=== PATIENT | female | born 1955 | race Two or more races ===

== ENCOUNTER 2017-06-09 04:12 | Inpatient (IN) | payer OTHER ==
[~2017-06-09] VITALS: Ht 157.5 cm; Wt 57.4 kg
[2017-06-09 06:38] LABS: BASOPHIL % 0.2 % (0-2); PLATELET COUNT 210 x10^3mcL (130-400); RED CELL DISTRIBUTION WIDTH 13.9 % (11.5-14.5)
[2017-06-09 06:51] LABS: CARBON DIOXIDE 21.3 mmol/L (21-32); CREATININE SERUM 1.4 mg/dL (0.6-1.0); POTASSIUM SERUM 3.3 mmol/L (3.5-5.1)
[2017-06-09 06:56] LABS: ALBUMIN 4.1 g/dL (3.4-5.0); BILIRUBIN TOTAL 0.33 mg/dL (0.20-1.00)
[2017-06-09 06:59] LABS: TOTAL PROTEIN, SERUM 8.9 g/dL (6.4-8.2)
[2017-06-09 07:05] LABS: CK-MB < 0.5 ng/mL (0-3.6); CREATINE KINASE 75 U/L (26-192)
[2017-06-09 07:41] LABS: UA SPECIFIC GRAVITY 1.015 (1.005-1.035); microscopic required? YES; urine erythrocyte 1+ (NEGATIVE)
[2017-06-09 10:50] LABS: T3 TOTAL 0.93 ng/mL
[2017-06-09 10:54] VITALS: BP 159/76
[2017-06-09 10:55] LABS: MAGNESIUM 1.6 mg/dL (1.8-2.4); PHOSPHOROUS 2.9 mg/dL (2.5-4.9)
[2017-06-09 10:57] LABS: CHOLESTEROL/HDL RATIO 2.4
[2017-06-09 11:13] LABS: FREE T4 1.29 ng/dL (0.76-1.46); FREE THYROXINE INDEX 3.9 ug/dL (1.4-4.5); T4(THYROXINE) 10.9 ug/dL (4.7-13.3)
[2017-06-09 17:09] VITALS: BP 137/68
[2017-06-09 20:59] VITALS: BP 139/84
[2017-06-10 05:20] VITALS: BP 114/70
[2017-06-10 09:28] VITALS: BP 133/76
[2017-06-10 11:46] VITALS: Ht 157.5 cm; Wt 57.4 kg
[2017-06-10 14:50] VITALS: BP 133/76
[2017-06-10] MEDS ORDERED: COLACE100 MG PO (14:54)
== END 2017-06-10 16:00 | disposition home or self-care (01) | DRG 204 ==
LOC: ED 04:12 → DU 09:36
PROVIDERS: Emergency Medicine; Family Medicine; ADMIT Internal Medicine Pulmonary Disease
DX: R55 Syncope and collapse (principal); K50.90 Crohn's disease, unspecified, without complications; I10 Essential (primary) hypertension; R31.9 Hematuria, unspecified; M54.9 Dorsalgia, unspecified; G89.4 Chronic pain syndrome
CPT/HCPCS: 83880; 84439; J1200; J2270; J2405; J2543; J7030; Q0092

== ENCOUNTER 2017-07-11 20:37 | Emergency (ER) | payer OTHER ==
[~2017-07-11 20:37] MED LIST: COLACE100 MG PO
[2017-07-11 20:46] VITALS: BP 160/84
[2017-07-12] MEDS ORDERED: NOR10 PO (15:13)
[2017-07-12] MEDS ORDERED: BUPROPION HCL100 M1 PO (15:14)
[2017-07-12] MEDS ORDERED: FUROSEMIDE20 MG PO (15:14)
[2017-07-12] MEDS ORDERED: SULFAZINE500 M1 PO (15:14)
[2017-07-12] MEDS ORDERED: VITD PO (15:14)
== END 2017-07-11 22:46 | disposition left against medical advice (07) ==
LOC: ED 20:37
DX: Z53.21 Procedure and treatment not carried out due to patient leaving prior to being seen by health care provider (principal)

== ENCOUNTER 2017-07-12 11:39 | Inpatient (IN) | payer OTHER ==
[~2017-07-12] VITALS: Ht 160 cm; Wt 55.6 kg
[2017-07-12 12:39] LABS: BASOPHIL % 0.9 % (0-2); PLATELET COUNT 343 x10^3mcL (130-400); RED CELL DISTRIBUTION WIDTH 13.5 % (11.5-14.5)
[2017-07-12 12:52] LABS: CALCIUM 9.3 mg/dL (8.5-10.1); CARBON DIOXIDE 24.2 mmol/L (21-32); CREATININE SERUM 1.4 mg/dL (0.6-1.0); POTASSIUM SERUM 3.1 mmol/L (3.5-5.1)
[2017-07-12 12:57] LABS: ALBUMIN 3.4 g/dL (3.4-5.0); BILIRUBIN TOTAL 0.34 mg/dL (0.20-1.00); TOTAL PROTEIN, SERUM 8.5 g/dL (6.4-8.2)
[2017-07-12 14:04] LABS: microscopic required? YES; urine erythrocyte 3+ (NEGATIVE)
[2017-07-12] MEDS ORDERED: NOR10 PO (15:13)
[2017-07-12] MEDS ORDERED: SULFAZINE500 M1 PO (15:14)
[2017-07-12] MEDS ORDERED: BUPROPION HCL100 M1 PO (15:14)
[2017-07-12] MEDS ORDERED: FUROSEMIDE20 MG PO (15:14)
[2017-07-12] MEDS ORDERED: VITD PO (15:14)
[2017-07-12 15:46] LABS: T3 TOTAL 0.95 ng/mL
[2017-07-12 15:55] LABS: MAGNESIUM 1.5 mg/dL (1.8-2.4); PHOSPHOROUS 2.7 mg/dL (2.5-4.9)
[2017-07-12 16:01] LABS: CHOLESTEROL/HDL RATIO 2.3
[2017-07-12 16:08] VITALS: BP 114/76; BP 144/76
[2017-07-12 16:25] LABS: FREE T4 1.21 ng/dL (0.76-1.46); FREE THYROXINE INDEX 3.7 ug/dL (1.4-4.5); T4(THYROXINE) 10.3 ug/dL (4.7-13.3)
[2017-07-12 21:00] VITALS: BP 136/73
[2017-07-13 04:09] LABS: IRON 22 ug/dL (50-170); TOTAL IRON BINDING CAPACITY 270 ug/dL (250-450)
[2017-07-13 05:53] VITALS: BP 137/78
[2017-07-13 06:48] LABS: BASOPHIL % 0.2 % (0-2); PLATELET COUNT 306 x10^3mcL (130-400); RED CELL DISTRIBUTION WIDTH 13.9 % (11.5-14.5)
[2017-07-13 06:51] LABS: CALCIUM 9.5 mg/dL (8.5-10.1); CARBON DIOXIDE 26.5 mmol/L (21-32); CREATININE SERUM 1.1 mg/dL (0.6-1.0); MAGNESIUM 2.4 mg/dL (1.8-2.4); PHOSPHOROUS 2.7 mg/dL (2.5-4.9)
[2017-07-13 08:25] LABS: RED BLOOD CELLS 3.8 M/mm3 (4.10-5.10)
[2017-07-13 09:28] VITALS: BP 112/60
[2017-07-13 13:47] VITALS: BP 127/78
[2017-07-13 17:46] VITALS: BP 109/68
[2017-07-13 20:56] VITALS: BP 116/62
[2017-07-14 05:52] VITALS: BP 114/69
[2017-07-14 06:11] LABS: BASOPHIL % 0.4 % (0-2); PLATELET COUNT 289 x10^3mcL (130-400); RED CELL DISTRIBUTION WIDTH 13.4 % (11.5-14.5)
[2017-07-14 06:41] LABS: CALCIUM 8.3 mg/dL (8.5-10.1); CARBON DIOXIDE 29.2 mmol/L (21-32); POTASSIUM SERUM 3.5 mmol/L (3.5-5.1)
[2017-07-14 09:30] VITALS: BP 123/75
[2017-07-14 17:06] VITALS: BP 139/77
[2017-07-14 21:05] VITALS: BP 111/62
[2017-07-15] MEDS ORDERED: FLO4 PO (05:26)
[2017-07-15] MEDS ORDERED: FERROUS SULFAT325 M2 PO (05:31)
[2017-07-15 05:44] VITALS: BP 118/70
[2017-07-15 05:58] LABS: CALCIUM 8.6 mg/dL (8.5-10.1); CARBON DIOXIDE 30.7 mmol/L (21-32); CREATININE SERUM 1.1 mg/dL (0.6-1.0); POTASSIUM SERUM 3.8 mmol/L (3.5-5.1)
[2017-07-15] MEDS ORDERED: LAC PO (09:48)
[2017-07-15] MEDS ORDERED: LEVOFLOXACIN500 M1 PO (09:48)
[2017-07-15 09:50] VITALS: BP 153/81
[2017-07-15 09:53] VITALS: BP 118/70
== END 2017-07-15 11:25 | disposition home or self-care (01) | DRG 465 ==
LOC: ED 11:39 → DU 14:41 → MU 07-14 06:48
PROVIDERS: Emergency Medicine; ADMIT Family Medicine
DX: N20.0 Calculus of kidney (principal); N17.0 Acute kidney failure with tubular necrosis; K50.90 Crohn's disease, unspecified, without complications; N39.0 Urinary tract infection, site not specified; E87.6 Hypokalemia; E83.42 Hypomagnesemia; F32.9 Major depressive disorder, single episode, unspecified; D64.9 Anemia, unspecified; Z68.21 Body mass index [BMI] 21.0-21.9, adult; Z88.5 Allergy status to narcotic agent; Z88.8 Allergy status to other drugs, medicaments and biological substances; I10 Essential (primary) hypertension
CPT/HCPCS: 83880; 84439; J0696; J1170; J1200; J1885; J2405; J3010; J3475; J7030; Q0092

== ENCOUNTER 2018-03-11 20:15 | Emergency (ER) | payer OTHER ==
[~2018-03-11] VITALS: Ht 160 cm; Wt 59.0 kg
[~2018-03-11 20:15] MED LIST changes: +BUPROPION HCL100 M1 PO; +FERROUS SULFAT325 M2 PO; +FLO4 PO; +FUROSEMIDE20 MG PO; +LAC PO; +LEVOFLOXACIN500 M1 PO; +NOR10 PO; +SULFAZINE500 M1 PO; +VITD PO
[2018-03-11 20:19] VITALS: Ht 160 cm; Wt 59.0 kg
[2018-03-11 21:11] LABS: UA SPECIFIC GRAVITY 1.025 (1.005-1.035); urine erythrocyte NEGATIVE (NEGATIVE)
[2018-03-11 21:16] LABS: microscopic required? NO
[2018-03-11 21:16] LABS: BASOPHIL % 0.3 % (0-2); PLATELET COUNT 213 x10^3mcL (130-400); RED CELL DISTRIBUTION WIDTH 14.4 % (11.5-14.5)
[2018-03-11 21:20] LABS: CALCIUM 9.1 mg/dL (8.5-10.1); CARBON DIOXIDE 31.9 mmol/L (21-32); CREATININE SERUM 1.8 mg/dL (0.6-1.0)
[2018-03-11 21:25] LABS: ALBUMIN 4.2 g/dL (3.4-5.0); BILIRUBIN TOTAL 0.46 mg/dL (0.20-1.00)
[2018-03-11 23:25] VITALS: BP 121/72
== END 2018-03-11 23:25 | disposition home or self-care (01) ==
LOC: ED 20:15
PROVIDERS: Emergency Medicine
DX: S39.012A Strain of muscle, fascia and tendon of lower back, initial encounter (principal); R11.10 Vomiting, unspecified; D64.9 Anemia, unspecified; Z88.5 Allergy status to narcotic agent; Z88.8 Allergy status to other drugs, medicaments and biological substances; X58.XXXA Exposure to other specified factors, initial encounter; Y93.89 Activity, other specified; Y92.89 Other specified places as the place of occurrence of the external cause; Y99.8 Other external cause status
CPT/HCPCS: 36415; 83880; J1885; J2405; J7030; Q0162

== ENCOUNTER 2018-05-26 23:18 | Emergency (ER) | payer OTHER ==
[~2018-05-26] VITALS: Ht 160 cm; Wt 54.5 kg
[2018-05-26 23:43] VITALS: Ht 160 cm; Wt 54.5 kg
[2018-05-27 01:26] LABS: UA SPECIFIC GRAVITY 1.025 (1.005-1.035); microscopic required? YES; urine erythrocyte 1+ (NEGATIVE)
[2018-05-27 02:09] LABS: PLATELET COUNT 242 x10^3mcL (130-400); RED CELL DISTRIBUTION WIDTH 13.1 % (11.5-14.5)
[2018-05-27 02:15] LABS: CALCIUM 8.8 mg/dL (8.5-10.1); CARBON DIOXIDE 21.8 mmol/L (21-32); CREATININE SERUM 3.3 mg/dL (0.6-1.0); POTASSIUM SERUM 3.2 mmol/L (3.5-5.1)
[2018-05-27 02:29] LABS: BILIRUBIN TOTAL 0.47 mg/dL (0.20-1.00); T4(THYROXINE) 11.7 ug/dL (4.7-13.3); TOTAL PROTEIN, SERUM 8.2 g/dL (6.4-8.2)
[2018-05-27 02:36] LABS: MONOCYTE 5 % (0-7); SEGMENTED NEUTROPHILS 72 % (37-75)
[2018-05-27 02:37] LABS: ATYPICAL LYMPH 1 %; BAND NEUTROPHIL 0 % (0-10); BASOPHIL 0 % (0-2)
[2018-05-27 02:38] LABS: PLATELET MORPHOLOGY PLATELETS NORMAL; rbc morphology (normal/abnorm) NORMAL (NORMAL)
[2018-05-27 04:50] VITALS: BP 124/64
== END 2018-05-27 04:50 | disposition home or self-care (01) ==
LOC: ED 23:18
PROVIDERS: Emergency Medicine
DX: K59.00 Constipation, unspecified (principal); N39.0 Urinary tract infection, site not specified; I12.9 Hypertensive chronic kidney disease with stage 1 through stage 4 chronic kidney disease, or unspecified chronic kidney disease; N18.9 Chronic kidney disease, unspecified; F32.9 Major depressive disorder, single episode, unspecified
CPT/HCPCS: J1100; J1885; J7030

== ENCOUNTER 2018-07-02 22:18 | Emergency (ER) | payer OTHER ==
[~2018-07-02] VITALS: Ht 160 cm; Wt 54.9 kg
[2018-07-02 22:23] VITALS: Ht 160 cm; Wt 54.9 kg
[2018-07-02 23:13] LABS: BASOPHIL % 0.1 % (0-2); PLATELET COUNT 233 x10^3mcL (130-400)
[2018-07-02 23:30] LABS: CALCIUM 9.5 mg/dL (8.5-10.1); CARBON DIOXIDE 21.3 mmol/L (21-32); CREATININE SERUM 1.2 mg/dL (0.6-1.0); POTASSIUM SERUM 3.1 mmol/L (3.5-5.1)
[2018-07-02 23:31] LABS: ALBUMIN 4.1 g/dL (3.4-5.0); BILIRUBIN TOTAL 0.51 mg/dL (0.20-1.00)
[2018-07-02 23:45] LABS: RED CELL DISTRIBUTION WIDTH 14.8 % (11.5-14.5)
[2018-07-02 23:46] LABS: UA SPECIFIC GRAVITY 1.015 (1.005-1.035); microscopic required? YES; urine erythrocyte 3+ (NEGATIVE)
[2018-07-03 01:23] VITALS: BP 144/86
== END 2018-07-03 01:23 | disposition home or self-care (01) ==
LOC: ED 22:18
PROVIDERS: Emergency Medicine
DX: N12 Tubulo-interstitial nephritis, not specified as acute or chronic (principal); F32.9 Major depressive disorder, single episode, unspecified; K50.90 Crohn's disease, unspecified, without complications; Z87.442 Personal history of urinary calculi; Z88.8 Allergy status to other drugs, medicaments and biological substances; Z98.890 Other specified postprocedural states
CPT/HCPCS: 36415; J1885; J3010; Q0162

== ENCOUNTER 2018-09-17 22:03 | Emergency (ER) | payer OTHER ==
[~2018-09-17] VITALS: Ht 170.2 cm; Wt 56.2 kg
[2018-09-17 22:14] VITALS: Ht 170.2 cm; Wt 56.2 kg
[2018-09-17 23:21] LABS: BASOPHIL % 0.3 % (0-2); PLATELET COUNT 254 x10^3mcL (130-400)
[2018-09-17 23:22] LABS: RED CELL DISTRIBUTION WIDTH 15.9 % (11.5-14.5)
[2018-09-17 23:28] LABS: CALCIUM 9.4 mg/dL (8.5-10.1); CARBON DIOXIDE 19.7 mmol/L (21-32); CREATININE SERUM 1.6 mg/dL (0.6-1.0); POTASSIUM SERUM 3.4 mmol/L (3.5-5.1)
[2018-09-18 00:08] VITALS: BP 122/76
== END 2018-09-18 00:08 | disposition home or self-care (01) ==
LOC: ED 22:03
PROVIDERS: Emergency Medicine
DX: M54.5 Low back pain (principal); R10.9 Unspecified abdominal pain; Z87.442 Personal history of urinary calculi; I10 Essential (primary) hypertension; F32.9 Major depressive disorder, single episode, unspecified; Z88.8 Allergy status to other drugs, medicaments and biological substances; Z98.890 Other specified postprocedural states; R11.0 Nausea
CPT/HCPCS: 36415; J1200; J1885

== ENCOUNTER 2018-09-18 06:18 | Emergency (ER) | payer OTHER ==
[~2018-09-18] VITALS: Ht 160 cm; Wt 57.6 kg
[2018-09-18 06:25] VITALS: Ht 160 cm; Wt 57.6 kg
[2018-09-18 08:50] VITALS: BP 113/85
== END 2018-09-18 08:50 | disposition home or self-care (01) ==
LOC: ED 06:18
DX: N23 Unspecified renal colic (principal); K50.90 Crohn's disease, unspecified, without complications; I10 Essential (primary) hypertension; F32.9 Major depressive disorder, single episode, unspecified; Z88.8 Allergy status to other drugs, medicaments and biological substances
CPT/HCPCS: J2270

== ENCOUNTER 2018-10-14 04:17 | Inpatient (IN) | payer OTHER ==
[~2018-10-14] VITALS: Ht 160 cm; Wt 57.6 kg
[2018-10-14 04:35] VITALS: Ht 160 cm; Wt 57.6 kg
[2018-10-14 05:51] LABS: UA SPECIFIC GRAVITY 1.025 (1.005-1.035); microscopic required? YES; urine erythrocyte 3+ (NEGATIVE)
[2018-10-14 05:58] LABS: BASOPHIL % 1.2 % (0-2); PLATELET COUNT 255 x10^3mcL (130-400)
[2018-10-14 06:03] LABS: RED CELL DISTRIBUTION WIDTH 17.2 % (11.5-14.5)
[2018-10-14 06:08] LABS: ALBUMIN 4.6 g/dL (3.4-5.0); BILIRUBIN TOTAL 0.41 mg/dL (0.20-1.00); CALCIUM 9.2 mg/dL (8.5-10.1); CARBON DIOXIDE 19.2 mmol/L (21-32); CREATININE SERUM 1.4 mg/dL (0.6-1.0)
[2018-10-14 06:09] LABS: TOTAL PROTEIN, SERUM 9.9 g/dL (6.4-8.2)
[2018-10-14 06:10] LABS: POTASSIUM SERUM 2.9 mmol/L (3.5-5.1)
[2018-10-14 06:55] LABS: rbc morphology (normal/abnorm) ABNORMAL (NORMAL)
[2018-10-14] MEDS ORDERED: LISINOPRIL2.5 MG PO (07:13)
[2018-10-14 07:36] LABS: MAGNESIUM 1.8 mg/dL (1.8-2.4); PHOSPHOROUS 3.3 mg/dL (2.5-4.9)
[2018-10-14 07:37] LABS: CHOLESTEROL/HDL RATIO 1.7
[2018-10-14 08:02] LABS: FREE T4 1.14 ng/dL (0.76-1.46); FREE THYROXINE INDEX 3.7 ug/dL (1.4-4.5); T4(THYROXINE) 11.8 ug/dL (4.7-13.3)
[2018-10-14 08:03] LABS: T3 TOTAL 0.66 ng/mL
[2018-10-14 08:36] VITALS: BP 177/94
[2018-10-14 10:40] VITALS: BP 177/94
[2018-10-14 12:40] VITALS: BP 149/71
[2018-10-14 14:54] LABS: AMPHETAMINE QUAL UR NONE DETECTED (See below)
[2018-10-14 16:49] VITALS: BP 141/76
[2018-10-14 21:23] VITALS: BP 147/80
[2018-10-15] VITALS (7 sets, daily range): BP systolic 134–167; BP diastolic 70–86
[2018-10-15 06:43] LABS: PLATELET COUNT 222 x10^3mcL (130-400)
[2018-10-15 07:08] LABS: CARBON DIOXIDE 14.2 mmol/L (21-32); CREATININE SERUM 1.1 mg/dL (0.6-1.0); MAGNESIUM 1.7 mg/dL (1.8-2.4); PHOSPHOROUS 2.9 mg/dL (2.5-4.9); POTASSIUM SERUM 4.2 mmol/L (3.5-5.1)
[2018-10-15 07:45] LABS: BASOPHIL % 0 % (0-2)
[2018-10-16 06:05] VITALS: BP 143/80
[2018-10-16 06:27] LABS: PLATELET COUNT 240 x10^3mcL (130-400)
[2018-10-16 06:46] LABS: CALCIUM 8.7 mg/dL (8.5-10.1); CARBON DIOXIDE 16.8 mmol/L (21-32); CREATININE SERUM 1.1 mg/dL (0.6-1.0); MAGNESIUM 1.6 mg/dL (1.8-2.4); PHOSPHOROUS 3.5 mg/dL (2.5-4.9); POTASSIUM SERUM 3.4 mmol/L (3.5-5.1)
[2018-10-16 06:53] LABS: BASOPHIL % 0 % (0-2); RED CELL DISTRIBUTION WIDTH 16.9 % (11.5-14.5)
[2018-10-16 08:54] VITALS: BP 151/85
[2018-10-16 13:33] VITALS: BP 155/85
[2018-10-16 17:40] VITALS: BP 131/78
[2018-10-17 02:05] VITALS: BP 150/71
[2018-10-17 06:02] VITALS: BP 129/68
[2018-10-17 06:42] LABS: PLATELET COUNT 255 x10^3mcL (130-400)
[2018-10-17 06:46] LABS: CALCIUM 8.9 mg/dL (8.5-10.1); CARBON DIOXIDE 20.2 mmol/L (21-32); CREATININE SERUM 1.2 mg/dL (0.6-1.0); MAGNESIUM 1.9 mg/dL (1.8-2.4); PHOSPHOROUS 2.8 mg/dL (2.5-4.9); POTASSIUM SERUM 4.3 mmol/L (3.5-5.1)
[2018-10-17 06:49] LABS: BASOPHIL % 0 % (0-2); RED CELL DISTRIBUTION WIDTH 17.5 % (11.5-14.5)
[2018-10-17 09:01] VITALS: BP 163/93
[2018-10-17 13:33] VITALS: BP 152/82
[2018-10-17 16:58] VITALS: BP 166/92
[2018-10-17 21:34] VITALS: BP 168/87
[2018-10-18 05:11] VITALS: BP 147/72
[2018-10-18 07:34] LABS: CALCIUM 8.6 mg/dL (8.5-10.1); CARBON DIOXIDE 18.7 mmol/L (21-32); CREATININE SERUM 1.1 mg/dL (0.6-1.0); MAGNESIUM 2.1 mg/dL (1.8-2.4); POTASSIUM SERUM 3.7 mmol/L (3.5-5.1)
[2018-10-18 08:26] LABS: BASOPHIL % 0 % (0-2); PLATELET COUNT 230 x10^3mcL (130-400); RED CELL DISTRIBUTION WIDTH 16.8 % (11.5-14.5)
[2018-10-18 10:21] VITALS: BP 137/73
[2018-10-18 12:23] VITALS: BP 161/88
[2018-10-18] MEDS ORDERED: PROTONIX40 MG PO (12:37)
[2018-10-18 13:00] VITALS: BP 137/74
== END 2018-10-18 14:23 | disposition home or self-care (01) | DRG 245 ==
LOC: ED 04:17 → DU 06:59
PROVIDERS: Emergency Medicine; Internal Medicine; ADMIT Internal Medicine
PROC: 0DBH8ZX Excision of Cecum, Via Natural or Artificial Opening Endoscopic, Diagnostic (ICD-10-PCS; 2018-10-18)
PROC: 0DBB8ZX Excision of Ileum, Via Natural or Artificial Opening Endoscopic, Diagnostic (ICD-10-PCS; 2018-10-18)
PROC: 0DB98ZX Excision of Duodenum, Via Natural or Artificial Opening Endoscopic, Diagnostic (ICD-10-PCS; principal; 2018-10-18 08:30)
PROC: 0DB68ZX Excision of Stomach, Via Natural or Artificial Opening Endoscopic, Diagnostic (ICD-10-PCS; 2018-10-18 08:30)
DX: K50.90 Crohn's disease, unspecified, without complications (principal); N17.0 Acute kidney failure with tubular necrosis; E86.0 Dehydration; E87.6 Hypokalemia; N20.0 Calculus of kidney; F32.9 Major depressive disorder, single episode, unspecified; I10 Essential (primary) hypertension; K20.9 Esophagitis, unspecified; K44.9 Diaphragmatic hernia without obstruction or gangrene; K29.60 Other gastritis without bleeding; E83.42 Hypomagnesemia; Z68.22 Body mass index [BMI] 22.0-22.9, adult; Z88.6 Allergy status to analgesic agent; Z88.8 Allergy status to other drugs, medicaments and biological substances; Z80.3 Family history of malignant neoplasm of breast; Z82.49 Family history of ischemic heart disease and other diseases of the circulatory system; Z83.79 Family history of other diseases of the digestive system; Z76.5 Malingerer [conscious simulation]
CPT/HCPCS: 43235; 45378; 83880; 84439; 87046; 87046-59; A9698; J1200; J1610; J1885; J1956; J2175; J2250; J2270; J2310; J2405; J2920; J2930; J3010; J3475; J3480; J3490; J7030; Q0092; Q0163

== ENCOUNTER 2019-02-04 08:04 | Emergency (ER) | payer OTHER ==
[~2019-02-04] VITALS: Ht 160 cm; Wt 56.2 kg
[~2019-02-04 08:04] MED LIST changes: +LISINOPRIL2.5 MG PO; +PROTONIX40 MG PO
[2019-02-04 08:16] VITALS: Ht 160 cm; Wt 56.2 kg
[2019-02-04 09:16] LABS: BASOPHIL % 0.3 % (0-2); PLATELET COUNT 200 x10^3mcL (130-400); RED CELL DISTRIBUTION WIDTH 13.9 % (11.5-14.5)
[2019-02-04 09:23] LABS: CARBON DIOXIDE 21.3 mmol/L (21-32); CREATININE SERUM 1.3 mg/dL (0.6-1.0); POTASSIUM SERUM 3.6 mmol/L (3.5-5.1)
[2019-02-04 09:27] LABS: BILIRUBIN TOTAL 0.8 mg/dL (0.20-1.00); TOTAL PROTEIN, SERUM 8.2 g/dL (6.4-8.2)
[2019-02-04 13:46] VITALS: BP 111/58
== END 2019-02-04 13:46 | disposition home or self-care (01) ==
LOC: ED 08:04
PROVIDERS: Emergency Medicine
DX: K50.90 Crohn's disease, unspecified, without complications (principal); G89.29 Other chronic pain; I10 Essential (primary) hypertension; Z88.8 Allergy status to other drugs, medicaments and biological substances
CPT/HCPCS: J1885; J2270; J2405; J3370; J7030

== ENCOUNTER 2019-02-28 01:41 | Emergency (ER) | payer OTHER ==
[~2019-02-28] VITALS: Ht 160 cm; Wt 55.5 kg
[2019-02-28 01:49] VITALS: Ht 160 cm; Wt 55.5 kg
[2019-02-28 02:39] LABS: BASOPHIL % 0.5 % (0-2); PLATELET COUNT 331 x10^3mcL (130-400)
[2019-02-28 02:49] LABS: RED CELL DISTRIBUTION WIDTH 14.6 % (11.5-14.5)
[2019-02-28 02:50] LABS: CALCIUM 10.2 mg/dL (8.5-10.1); CARBON DIOXIDE 16.9 mmol/L (21-32); CREATININE SERUM 1.5 mg/dL (0.6-1.0); POTASSIUM SERUM 3.1 mmol/L (3.5-5.1)
[2019-02-28 02:55] LABS: ALBUMIN 4.7 g/dL (3.4-5.0); BILIRUBIN TOTAL 0.43 mg/dL (0.20-1.00); TOTAL PROTEIN, SERUM 8.8 g/dL (6.4-8.2); URIC ACID 4.4 mg/dL (2.6-6.0)
[2019-02-28 04:51] LABS: microscopic required? YES; urine erythrocyte 3+ (NEGATIVE)
[2019-02-28 06:18] VITALS: BP 129/78
== END 2019-02-28 06:18 | disposition home or self-care (01) ==
LOC: ED 01:41
PROVIDERS: Emergency Medicine
DX: R10.9 Unspecified abdominal pain (principal); E87.6 Hypokalemia; R31.29 Other microscopic hematuria; K50.90 Crohn's disease, unspecified, without complications; I10 Essential (primary) hypertension; F32.9 Major depressive disorder, single episode, unspecified; Z87.442 Personal history of urinary calculi
CPT/HCPCS: J1200; J1885; J2405; J7030

== ENCOUNTER 2019-12-11 23:48 | Inpatient (IN) | payer MEDICAID ==
[~2019-12-11] VITALS: Ht 157.5 cm; Wt 59.6 kg
[2019-12-11 23:52] VITALS: Ht 157.5 cm; Wt 59.6 kg
[2019-12-12 00:40] LABS: BASOPHIL % 1.5 % (0-2); PLATELET COUNT 198 x10^3mcL (130-400)
[2019-12-12 01:02] LABS: CALCIUM 8.5 mg/dL (8.5-10.1); CREATININE SERUM 1.3 mg/dL (0.6-1.0)
[2019-12-12 01:06] LABS: ALBUMIN 3.7 g/dL (3.4-5.0); BILIRUBIN TOTAL 0.4 mg/dL (0.20-1.00); TOTAL PROTEIN, SERUM 7.6 g/dL (6.4-8.2)
[2019-12-12 01:43] LABS: microscopic required? YES; urine erythrocyte NEGATIVE (NEGATIVE)
[2019-12-12 04:27] LABS: CHOLESTEROL/HDL RATIO 1.9
[2019-12-12 04:30] LABS: T3 TOTAL 1.34 ng/mL
[2019-12-12 04:34] LABS: FREE THYROXINE INDEX 2.8 ug/dL (1.4-4.5); T4(THYROXINE) 7.6 ug/dL (4.7-13.3)
[2019-12-12 04:41] VITALS: BP 145/70
[2019-12-12] MEDS ORDERED: BENAZEPRIL HYDR40 M1 PO (05:02)
[2019-12-12 06:40] LABS: CALCIUM 7.9 mg/dL (8.5-10.1); CARBON DIOXIDE 23.2 mmol/L (21-32); CREATININE SERUM 1.4 mg/dL (0.6-1.0); POTASSIUM SERUM 3.9 mmol/L (3.5-5.1)
[2019-12-12 07:14] LABS: BASOPHIL % 0.1 % (0-2); PLATELET COUNT 180 x10^3mcL (130-400); RED CELL DISTRIBUTION WIDTH 16.1 % (11.5-14.5)
[2019-12-12 09:53] VITALS: BP 150/81
[2019-12-12 12:13] VITALS: BP 119/67
[2019-12-12 17:58] VITALS: BP 144/71
[2019-12-12 19:17] VITALS: BP 149/73
[2019-12-13 05:32] VITALS: BP 144/83
[2019-12-13 08:20] LABS: BASOPHIL % 0.7 % (0-2); PLATELET COUNT 186 x10^3mcL (130-400)
[2019-12-13 08:23] LABS: RED CELL DISTRIBUTION WIDTH 16.3 % (11.5-14.5)
[2019-12-13 08:35] VITALS: BP 130/78
[2019-12-13 08:57] LABS: CALCIUM 8.3 mg/dL (8.5-10.1); CARBON DIOXIDE 24.8 mmol/L (21-32); CREATININE SERUM 1.6 mg/dL (0.6-1.0); MAGNESIUM 1.2 mg/dL (1.8-2.4); PHOSPHOROUS 2.7 mg/dL (2.5-4.9); POTASSIUM SERUM 3.7 mmol/L (3.5-5.1)
[2019-12-13 13:17] VITALS: BP 126/76
[2019-12-13 15:59] VITALS: BP 123/69
[2019-12-13 20:15] VITALS: BP 136/76
[2019-12-14] MEDS ORDERED: METFORMIN HCL500 M4 PO (01:38)
[2019-12-14 05:32] VITALS: BP 102/52
[2019-12-14 07:13] LABS: CALCIUM 8.3 mg/dL (8.5-10.1); CARBON DIOXIDE 25.2 mmol/L (21-32); CREATININE SERUM 1.4 mg/dL (0.6-1.0); MAGNESIUM 1.6 mg/dL (1.8-2.4); PHOSPHOROUS 3.2 mg/dL (2.5-4.9); POTASSIUM SERUM 3.5 mmol/L (3.5-5.1)
[2019-12-14 08:21] LABS: PLATELET COUNT 131 x10^3mcL (130-400)
[2019-12-14 08:29] LABS: BAND NEUTROPHIL 0 % (0-10); BASOPHIL 0 % (0-2); MONOCYTE 5 % (0-7); SEGMENTED NEUTROPHILS 65 % (37-75)
[2019-12-14 08:30] LABS: rbc morphology (normal/abnorm) ABNORMAL (NORMAL)
[2019-12-14 08:31] VITALS: BP 129/74
[2019-12-14 12:53] VITALS: BP 136/70
[2019-12-14 20:40] VITALS: BP 140/75
[2019-12-15 06:38] VITALS: BP 130/71
[2019-12-15 06:53] LABS: CALCIUM 8.9 mg/dL (8.5-10.1); CARBON DIOXIDE 22.5 mmol/L (21-32); CREATININE SERUM 1.1 mg/dL (0.6-1.0); POTASSIUM SERUM 4.2 mmol/L (3.5-5.1)
[2019-12-15] MEDS ORDERED: FER300 PO (08:57)
[2019-12-15] MEDS ORDERED: PRI20 PO (08:57)
[2019-12-15] MEDS ORDERED: BACTRIM DS1 TAB PO (08:57)
[2019-12-15] MEDS ORDERED: WELSR100 PO (08:57)
[2019-12-15 09:08] VITALS: BP 149/80
[2019-12-15 12:21] VITALS: BP 150/82
== END 2019-12-15 13:12 | disposition home or self-care (01) | DRG 446 ==
LOC: ED 23:48 → DU 12-12 02:52
PROVIDERS: Emergency Medicine; Urology; ADMIT Family Medicine
PROC: 0TF68ZZ Fragmentation in Right Ureter, Via Natural or Artificial Opening Endoscopic (ICD-10-PCS; 2019-12-14)
PROC: 0T768DZ Dilation of Right Ureter with Intraluminal Device, Via Natural or Artificial Opening Endoscopic (ICD-10-PCS; 2019-12-14)
PROC: BT1DYZZ Fluoroscopy of Right Kidney, Ureter and Bladder using Other Contrast (ICD-10-PCS; 2019-12-14)
PROC: 0TC68ZZ Extirpation of Matter from Right Ureter, Via Natural or Artificial Opening Endoscopic (ICD-10-PCS; principal; 2019-12-14 13:30)
DX: N13.2 Hydronephrosis with renal and ureteral calculous obstruction (principal); N17.0 Acute kidney failure with tubular necrosis; K50.90 Crohn's disease, unspecified, without complications; N39.0 Urinary tract infection, site not specified; E87.6 Hypokalemia; I10 Essential (primary) hypertension; F32.9 Major depressive disorder, single episode, unspecified; Z87.442 Personal history of urinary calculi; Z68.21 Body mass index [BMI] 21.0-21.9, adult; Z88.8 Allergy status to other drugs, medicaments and biological substances; Z81.1 Family history of alcohol abuse and dependence; Z80.3 Family history of malignant neoplasm of breast; Z82.49 Family history of ischemic heart disease and other diseases of the circulatory system
CPT/HCPCS: 84439; C1769; C2625; G0378; J0696; J1200; J1885; J1956; J2060; J2270; J2405; J3010; J3475; J7030; Q0092; Q9958; Q9967

== ENCOUNTER 2019-12-19 12:48 | Emergency (ER) | payer MEDICAID ==
[~2019-12-19] VITALS: Ht 157.5 cm; Wt 58.5 kg
[~2019-12-19 12:48] MED LIST changes: +BACTRIM DS1 TAB PO; +BENAZEPRIL HYDR40 M1 PO; +FER300 PO; +METFORMIN HCL500 M4 PO; +PRI20 PO; +WELSR100 PO
[2019-12-19 12:54] VITALS: BP 192/98; Ht 157.5 cm; Wt 58.5 kg
[2019-12-19 14:12] LABS: UA SPECIFIC GRAVITY 1.015 (1.005-1.035); microscopic required? YES; urine erythrocyte 3+ (NEGATIVE)
== END 2019-12-19 15:00 | disposition home or self-care (01) ==
LOC: ED 12:48
PROVIDERS: Emergency Medicine
DX: R10.9 Unspecified abdominal pain (principal); I10 Essential (primary) hypertension; F32.9 Major depressive disorder, single episode, unspecified; Z87.442 Personal history of urinary calculi